=== PATIENT | female | born 1995 | race Hispanic/Latino ===

== ENCOUNTER 2017-06-29 15:17 | Emergency (ER) | payer SELFPAY ==
--- NOTE | 2017-06-29 16:32 | ER ---
Nurse's Notes [facility] Name: Christal Vasquez Age: 22 yrs Sex: Female : 1995 Arrival Date: 06/29/2017 Time: 15:18 Bed 10 Private MD: Diagnosis: Unspecified fracture of left forearm-displaced, radius Presentation: 06/29 15:26 Presenting complaint: Patient states: I fell night and I think I sprained my la1 left wrist. Transition of care: patient was not received from another setting of care. Onset of symptoms was June 29, 2017. Initial Sepsis Screen: Does the patient meet any 2 criteria? No. Patient's initial sepsis screen is negative. Does the patient have a suspected source of infection? No. Patient initial sepsis screen negative. Care prior to arrival: None. 15:26 Method Of Arrival: Ambulatory la1 15:26 Acuity: REGAN 4 la1 Triage Assessment: 15:38 General: Appears in no apparent distress. slender, well groomed, well developed, well rk2 nourished, Behavior is calm, cooperative. Pain: Complains of pain in left wrist. Neuro: Level of Consciousness is alert, obeys commands, Oriented to person, place, time, situation. Respiratory: Airway is patent Respiratory effort is even, unlabored, Respiratory pattern is regular, symmetrical. Derm: Skin is pink, warm \T\ dry. Musculoskeletal: Capillary refill < 3 seconds, fingers. Swelling present in left wrist. Injury Description: Bruise sustained to Left wrist. 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 - Social history:: Smoking status: unknown. Screenin:37 Abuse screen: Denies threats or abuse. Nutritional screening: No deficits noted. rk2 Tuberculosis screening: No symptoms or risk factors identified. Fall Risk Vital Signs: 15:27 Weight 49.44 kg; Height 4 ft. 11 in. (149.86 cm); la1 15:28 BP 119 / 69; Pulse 91; Resp 19; Temp 99.0; Pulse Ox 99% on R/A; Weight 49.44 kg; la1 15:28 Body Mass Index 22.02 (49.44 kg, 149.86 cm) la1 ED Course: 15:18 Patient arrived in ED. as 15:19 Radha Cuba FNP-C is [facility]. kb 15:19 Oscar Carbajal MD is Attending Physician. kb 15:27 Triage completed. la1 15:28 Arm band placed on left wrist. la1 15:35 Sarika Garcia, RN is Primary Nurse. rk2 15:37 Patient has correct armband on for positive identification. Bed in low position. Call rk2 light in reach. 16:19 X-ray completed. Portable x-ray completed in exam room. Patient tolerated procedure mh1 well. 16:29 Wrist Left 3 View In Process Unspecified. EDMS 16:59 Orthoglass splint: Sugar tong splint applied on left arm. capillary refill less than 3 dh3 seconds Sling applied to left arm. 17:02 No provider procedures requiring assistance completed. Patient did not have IV access rk2 during this emergency room visit. Administered Medications: No medications were administered Outcome: 16:32 Discharge ordered by . kb 17:02 Discharged to home ambulatory. rk2 17:02 Condition: good 17:02 Discharge instructions given to patient. 17:03 Patient left the ED. rk2 Signatures: Dispatcher [employer] EDMS Radha Cuba FNP-C FNP-Flori Moulton 1 Dori Koroma Lee, RN RN la1 Maria De Jesus Presley 3 Sarika Garcia, JOELLEN RN rk2
--- NOTE | 2017-06-29 16:32 | EDPHYS ---
Physician Documentation [facility] Name: Christal Vasquez Age: 22 yrs Sex: Female : 1995 Arrival Date: 06/29/2017 Time: 15:18 Bed 10 Private MD: ED Physician Oscar Carbajal HPI: 06/29 15:49 This 22 yrs old Female presents to ER via Ambulatory with complaints of Wrist kb Injury. 15:49 The patient or guardian reports injury, pain, swelling, tenderness. The complaints kb affect the left wrist diffusely. Context: The problem was sustained at home, resulted from a fall, on an outstretched hand. Onset: The symptoms/episode began/occurred 5 day(s) ago. Modifying factors: The symptoms are alleviated by nothing, the symptoms are aggravated by movement. Associated signs and symptoms: The patient has no apparent associated signs or symptoms. Compartment Syndrome negative for numbness, tingling. The patient has not experienced similar symptoms in the past. The patient has not recently seen a physician. 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 - Social history:: Smoking status: unknown. ROS: 15:47 Constitutional: Negative for fever, chills, and weight loss, Cardiovascular: Negative kb for chest pain, palpitations, and edema, Respiratory: Negative for shortness of breath, cough, wheezing, and pleuritic chest pain, Abdomen/GI: Negative for abdominal pain, nausea, vomiting, diarrhea, and constipation, Skin: Negative for injury, rash, and discoloration, Neuro: Negative for headache, weakness, numbness, tingling, and seizure. 15:47 MS/extremity: Positive for injury or acute deformity, ecchymosis, pain, swelling, tenderness, of the left wrist. Exam: 15:47 Hand exam: Exam is positive for decreased range of motion, ecchymosis, injury, pain, kb swelling, tenderness, ROM: limited active range of motion, in the left wrist, Circulation is intact in all extremities. sensation intact. 15:47 Constitutional: This is a well developed, well nourished patient who is awake, alert, and in no acute distress. Head/Face: Normocephalic, atraumatic. Chest/axilla: Normal chest wall appearance and motion. Nontender with no deformity. No lesions are appreciated. Cardiovascular: Regular rate and rhythm with a normal S1 and S2. No gallops, murmurs, or rubs. Normal PMI, no JVD. No pulse deficits. Respiratory: Lungs have equal breath sounds bilaterally, clear to auscultation and percussion. No rales, rhonchi or wheezes noted. No increased work of breathing, no retractions or nasal flaring. Abdomen/GI: Soft, non-tender, with normal bowel sounds. No distension or tympany. No guarding or rebound. No evidence of tenderness throughout. Skin: Warm, dry with normal turgor. Normal color with no rashes, no lesions, and no evidence of cellulitis. Neuro: Awake and alert, GCS 15, oriented to person, place, time, and situation. Cranial nerves II-XII grossly intact. Motor strength 5/5 in all extremities. Sensory grossly intact. Cerebellar exam normal. Normal gait. Vital Signs: 15:27 Weight 49.44 kg; Height 4 ft. 11 in. (149.86 cm); la1 15:28 BP 119 / 69; Pulse 91; Resp 19; Temp 99.0; Pulse Ox 99% on R/A; Weight 49.44 kg; la1 15:28 Body Mass Index 22.02 (49.44 kg, 149.86 cm) la1 MDM: 15:29 Patient medically screened. kb 15:47 Data reviewed: vital signs, nurses notes. Data interpreted: Pulse oximetry: on room air kb is 99 %. Interpretation: normal. 16:31 Counseling: I had a detailed discussion with the patient and/or guardian regarding: the kb historical points, exam findings, and any diagnostic results supporting the discharge/admit diagnosis, radiology results, the need for outpatient follow up, a orthopedic surgeon, to return to the emergency department if symptoms worsen or persist or if there are any questions or concerns that arise at home. 06/29 16:19 Order name: Wrist Left 3 View; Complete Time: 16:46 EDMS 06/29 16:31 Order name: Sugar Tong Forearm Splint; Complete Time: 17:00 kb 06/29 16:31 Order name: Sling; Complete Time: 17:00 kb Administered Medications: No medications were administered Disposition: 06/30 07:51 Co-signature as Attending Physician, Oscar Carbajal MD Available for consultation at ps1 all times. . Disposition: 06/29/17 16:32 Discharged to Home. Impression: Unspecified fracture of left forearm - displaced, radius. - Condition is Stable. - Discharge Instructions: Forearm Fracture, [id number]. - Work release form, Medication Reconciliation Form, Thank You Letter, Antibiotic Education, Prescription Opioid Use form. - Follow up: Emergency Department; When: As needed; Reason: Worsening of condition. Follow up: Private Physician; When: 2 - 3 days; Reason: Recheck today's complaints, Continuance of care, Re-evaluation by your physician. Signatures: Dispatcher [employer] EDRadha Guthrie, NAIMA MALAGON-Trever Redmond RN RN la1 Oscar Carbajal MD MD ps1 Sarika Garcia RN RN rk2 Corrections: (The following items were deleted from the chart) 06/29 16:47 16:38 Wrist Left 3 View+RAD.RAD.BRZ ordered. EDCO EDCO
--- NOTE | 2017-06-29 16:35 | RAD REPORT ---
EXAM DESCRIPTION: RAD - Wrist Left 3 View - 06/29/2017 4:29 pm CLINICAL HISTORY: Fall, wrist pain COMPARISON: None. FINDINGS: Fracture of the distal radius and ulnar styloid noted. No dislocation is seen.
== END 2017-06-29 17:03 | disposition home or self-care (01) ==
LOC: ER 15:17
PROC: 2W3DX1Z Immobilization of Left Lower Arm using Splint (ICD-10-PCS; principal; 2017-06-29)
DX: S52.512A Displaced fracture of left radial styloid process, initial encounter for closed fracture (principal); W19.XXXA Unspecified fall, initial encounter; Y93.9 Activity, unspecified; Y92.009 Unspecified place in unspecified non-institutional (private) residence as the place of occurrence of the external cause
CPT/HCPCS: 99283

== ENCOUNTER 2019-11-18 04:49 | Inpatient (IN) | payer OTHER ==
[~2019-11-18 04:49] MED LIST: BUTORPHANOL 1 MG/ML INJ IV PRN; CARBOPROST TROME 250 MCG/ML IM PRN; METHYLERGONOVINE 0.2MG/ML AMP IM PRN; OXYTOCIN/LR 20 UNIT/1,000 ML BAG IV SCH; PROMETHAZINE INJ 25 MG/ML AMP IM PRN; Ringers Lactate 1,000 ML IV PRN; Ringers Lactate 1,000 ML IV SCH
[2019-11-18 05:41] LABS: Absolute Lymphocytes (CBC) 2.1 K/uL (0.7-4.9); Basophils % 0.5 % (0-1.3); Hematocrit 37.7 % (36.0-45.0); Lymphocytes % 14.9 % (15.3-44.8); MPV 8.7 fL (7.6-11.3); RBC Red Blood Cell Count 4.09 M/uL (3.86-4.86)
[2019-11-18 05:43] VITALS: BMI 29.2
[2019-11-18 06:22] LABS: Urine Appearance CLOUDY; Urine Bilirubin NEGATIVE (NEG); Urine Blood NEGATIVE (NEG); Urine Color YELLOW; Urine Glucose NEGATIVE (NEG); Urine Protein NEGATIVE (NEG)
[2019-11-18 06:25] LABS: Urine Microscopic Reflex ORDER UMIC
[2019-11-18 06:34] LABS: Urine Bacteria <20 /HPF (<20); Urine Culture Reflex Order REFLEXED; Urine RBC NONE SEEN /HPF (NONE SEEN)
[2019-11-18] MEDS ORDERED: BUPIVACAINE 0.25% PF 10 ML VIAL IV PRN (08:16)
[2019-11-18] MEDS ORDERED: FENTANYL CITR 100 MCG/2 ML IV ONE (08:16)
[2019-11-18] MEDS ORDERED: FENTANYL/BUPIVACAINE/NS/PF 200 MCG/100 ML BAG EP PRN (08:16)
--- NOTE | 2019-11-18 08:28 | PREOPHP ---
Date of Admission: 11/18/2019 Christal Vasquez is a 24-year-old primigravida, 38 weeks 4 days. The patient has been known to have a ba by with bilateral hydronephrosis and now developed oligohydramnios. She was scheduled for induction next week, but we have moved the induction up secondary to the oligohydramnios. She is Rh positive, immune to Rubella. Negative beta strep screen. COVID status pending. Elia regularly at this 3 cm. Cervix still somewhat posterior, 50% effaced, vertex well applied at -1 station. Ruptured me mbranes, clear fluid. Labor talk given. Anticipate more rapid progress once she gets about to 5 cm. The patient probably be requesting epidural. Montse Rader is patient's security auditor. She is jose alberto mckeon made aware of the oligohydramnios situation of course will be responsible for evaluation of the bab y . MARLEEN/PATRICIA Voice ID: [id number]
[2019-11-18] MEDS ORDERED: BUPIVACAINE 0.25% PF 30 ML VIAL ONE (08:50)
[2019-11-18] MEDS ORDERED: Ringers Lactate 3,000 ML IV ONE (10:04)
[2019-11-18] MEDS ORDERED: LIDOCAINE 1% MPF 30 ML VIAL ONE (10:23)
[2019-11-18] MEDS ORDERED: Oxycodone HCl/Acetaminophen 1 TAB TAB PO PRN (12:19)
[2019-11-18] MEDS ORDERED: ACETAMINOPHEN 500 MG TAB PO PRN (12:19)
[2019-11-18] MEDS ORDERED: BISACODYL 10 MG RECTAL SUPP PR PRN (12:19)
[2019-11-18] MEDS ORDERED: DOCUSATE NA/SENNA CONC 1 TAB PO PRN (12:19)
[2019-11-18] MEDS ORDERED: DIPHENHYDRAMINE 25 MG TAB/CAP PO PRN (12:19)
[2019-11-18] MEDS ORDERED: OXYTOCIN/LR 20 UNIT/1,000 ML BAG IV SCH (13:00)
[2019-11-18] MEDS: IBUPROFEN 600 MG TAB PO PRN (16:45)
[2019-11-18] MEDS: Oxycodone HCl/Acetaminophen 1 TAB TAB PO PRN (20:12)
--- NOTE | 2019-11-18 21:55 | OP ---
Surgeon: Michael Avendano MD Christal Vasquez is a 24-year-old primigravida, 38 weeks 4 days. Baby noted to have bilateral hydronephr osis with sudden development of oligohydramnios. She was scheduled for induction next Thursday at 39 w eeks, but at 38 weeks 4 days, we decided to proceed with induction. Favorable cervix 2.5 to 3 cm. O n admission, rupture membranes at 3 cm, clear fluid. FHTs normal, reactive. The patient got epidura l anesthesia at her request. Second stage of about 30 to 35 minutes. Spontaneous vaginal delivery o f a 6 pounds 13 ounces male . Loose nuchal cord x1. Apgars 9 and 9. First degree laceration to the right of the clitoris, sutured with running locked stitches of 2-0 chromic. Second degree mid line laceration sutured with 2-0 chromic. Schultze delivery of the placenta, which was noted to be h eavily calcified, but otherwise normal. Estimated blood loss 350 cc to 375 cc. The patient is Rh po sitive, immune to Rubella, negative beta strep screen. Tolerated all procedures well. Baby has quit e a bit of mucus, but has not good color, good heart rate, looks good. Chief Engineering Division will be asked to come, evaluate the baby if the nurses cannot suck out the mucus in the next few minutes. Final Diagnoses: Term intrauterine at 38 weeks 4 days, bilateral hydronephrosis, oligohydr amnios, labor induction, vaginal delivery, epidural anesthesia, nuchal cord. NBC/MODL Voice ID: [id number] Report ID: [id number]
[2019-11-19 00:02] LABS: RPR (Rapid Plasma Reagin) NON-REACT (NON-REACT)
[2019-11-19] MEDS: IBUPROFEN 600 MG TAB PO PRN ×2 (00:51→11:10)
[2019-11-19] MEDS: Oxycodone HCl/Acetaminophen 1 TAB TAB PO PRN (00:51)
--- NOTE | 2019-11-19 08:44 | DS ---
Christal Vasquez is a 24-year-old primigravida, 38 weeks 4 days. Baby noted to have bilateral hydronephr osis and patient developed oligohydramnios, therefore was decided to proceed with induction. The pat ient was favorable on admission 2.5 to 3 cm. Rupture membranes, clear fluid. The patient went to an active labor, received epidural anesthesia, second stage about 30-45 minutes. Spontaneous vaginal d elivery of a 6 pounds 13 ounces male , Apgars 9 and 9. First-degree laceration to the right of clitoris, sutured with 2-0 chromic and second degree midline small laceration again with 2-0 chromic . Villa delivery of the placenta, which was heavily calcified, but otherwise normal, 350 to 375 cc blood loss. Baby noted to have a very loose nuchal cord. Rh positive, immune to rubella. Negative beta strep screen. ; afebrile, ambulating and voiding. Lochia is normal. No post epidura l problems. The patient request narcotic analgesics on dismissal. She knows this goes through the b reast milk and may elect to take Motrin instead. No post epidural problems. Tdap has been offered d uring her and again offered today. Baby is to be evaluated by Dr. Rader, but thus far i s doing quite well. Final Diagnoses: Intrauterine gestation, 38 weeks and 4 days, bilateral hydronephrosis, oligoh ydramnios, vaginal delivery, epidural anesthesia. Nuchal cord loosely. SCOOTERC/MODL Voice ID: [id number] Report ID: [id number]
[2019-11-19 11:14] VITALS: BP 137/78; TEMP 98.3
== END 2019-11-19 15:30 | disposition home or self-care (01) | DRG 807 ==
LOC: 2ND-WC 04:49
PROVIDERS: ADMIT Specialist; ATTEND Specialist
PROC: 10E0XZZ Delivery of Products of Conception, External Approach (ICD-10-PCS; principal; 2019-11-18)
PROC: 0KQM0ZZ Repair Perineum Muscle, Open Approach (ICD-10-PCS; 2019-11-18)
PROC: 3E033VJ Introduction of Other Hormone into Peripheral Vein, Percutaneous Approach (ICD-10-PCS; 2019-11-18)
DX: O41.03X0 Oligohydramnios, third trimester, not applicable or unspecified (principal); Z37.0 Single live birth; O70.1 Second degree perineal laceration during delivery; Z3A.38 38 weeks gestation of pregnancy; Z01.812 Encounter for preprocedural laboratory examination; Z20.828 Contact with and (suspected) exposure to other viral communicable diseases
CPT/HCPCS: 36415; 76805; 81003; 81015; 85025; 86592; 86850; 86900; 86901; 87086; 87088; J0595; J2210; J2550; J2590; J3010; J7120; U0002; U0003

== ENCOUNTER 2024-04-16 03:35 | Emergency (ER) | payer OTHER ==
--- OUTSIDE RECORDS SUMMARY | 2024-04-16 03:37 | XMS REPORT | Continuity of Care Document ---
Author Name Unknown Address [address] [place] [address] [facility] Address [address] [place] [address] Care Team Providers Care Medicaid Billing Clerk Name Role Phone PCP, PATIENT DOES NOT HAVE A Primary Care Physic jaime Unavailable NICKO HUANG Attending Clinician Unavailable AMPARO JOHNSON Attending Clinician Unavailable Payers Payer Name Policy Type Policy Number Effective Date Expirati on Date Source [place] [employer] [id number] 2023 00:00:00 Allergies, Adverse Reactions, Alerts Allergy Name Allergy Type Status Severity Reaction(s) Onset Date Inactive Date Treating Clinician Comments Source NO KNOWN ALLERGIE S Drug Class Active [facility] Encounters Start Date/Time End Date/Time Encounter Type Admission Type Attending Clinicians Care Facility Care Department Encounter ID Source 2021-10-15 13:52:[address] [facility] [id number] [facility] 2024-04-18 13:00:00 2024-04-18 13:00:00 Outpatient NICKO BLA[facility] [id number] [facility] 2024-04-12 09:15:00 2024-04-12 09:15:00 Outpatient AMPARO [facility]IRANDA [facility] [id number] [facility] 2024-04-12 08:45:00 2024-04-12 08:45:00 Outpatient AMPARO MIRANDA [facility] [id number] [facility] 2024-04-08 14:00:00 2024-04-08 14:00:00 Outpatient AMPARO MIRANDA [facility] [id number] [facility]
[2024-04-16] MEDS ORDERED: TETRACAINE HCL 0.5% 4ML OPTH ONE (03:49)
[2024-04-16] MEDS ORDERED: FLUORESCEIN SODIUM 1 MG/WRAP ONE (03:50)
[2024-04-16] MEDS ORDERED: TOBRAMYCIN SULF 0.3% OPTH OINT ONE (04:38)
--- NOTE | 2024-04-16 05:10 | ER ---
Nurse's Notes [facility] Name: Christal Vasquez Age: 28 yrs Sex: Female : 1995 Arrival Date: 04/16/2024 Time: 03:35 Bed 5 Private MD: Diagnosis: Injury of conjunctiva and corneal abrasion without foreign body, right eye Presentation: 04/16 03:55 Chief complaint: Patient states: sons fingernail to right eye 3hr [employer]. complaints of lg3 took Excedrin with no relief. Coronavirus screen: Client denies travel out of the [place] in the last 14 days. At this time, the client does not indicate any symptoms associated with coronavirus-19. Ebola Screen: No symptoms or risks identified at this time. Initial Sepsis Screen: Does the patient meet any 2 criteria? No. Patient's initial sepsis screen is negative. Does the patient have a suspected source of infection? No. Patient's initial sepsis screen is negative. Risk Assessment: Do you want to hurt yourself or someone else? Patient reports no desire to harm self or others. Onset of symptoms was April 16, 2024. 03:55 Method Of Arrival: Ambulatory lg3 03:55 Acuity: REGAN 4 lg3 05:39 Mechanism of Injury: playful accident by child. The patient denies any loss of vision. bm8 Triage Assessment: 04:00 General: Appears in no apparent distress. uncomfortable, Behavior is calm, cooperative. lg3 Pain: Complains of pain in right eye. EENT: Eyes are tearing on right eye Sclera/Cornea are reddened in right eye Reports blurred vision in right eye pain in right eye. Neuro: No deficits noted. Huynh Agitation-Sedation Scale (RASS): 0 - Alert and Calm Level of Consciousness is awake, alert, obeys commands, Oriented to person, place, time, situation. Cardiovascular: No deficits noted. Denies chest pain, shortness of breath. Respiratory: No deficits noted. Airway is patent Respiratory effort is even, unlabored, Respiratory pattern is regular, symmetrical. GI: No deficits noted. No signs and/or symptoms were reported involving the gastrointestinal system. : No signs and/or symptoms were reported regarding the genitourinary system. Derm: No deficits noted. No signs and/or symptoms reported regarding the dermatologic system. Skin is intact, is healthy with good turgor, Skin is dry, Skin is normal, Skin temperature is warm. Musculoskeletal: No deficits noted. No signs and/or symptoms reported regarding the musculoskeletal system. Circulation, motion, and sensation intact. Range of motion: intact in all extremities. 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 - Infectious Disease History:: Denies. Denies. - Social history:: Smoking status: Patient denies any tobacco usage or history of. Patient/guardian denies using alcohol, street drugs, Smoking status: Patient denies any tobacco usage or history of. Screenin:01 [facility] ED Fall Risk Assessment (Adult) History of falling in the last 3 months, bm8 including since admission No falls in past 3 months (0 pts) Confusion or Disorientation No (0 pts) Intoxicated or Sedated No (0 pts) Impaired Gait No (0 pts) Mobility Assist Device Used No (0 pt) Altered Elimination No (0 pt) Score/Fall Risk Level 0 - 2 = Low Risk Oriented to surroundings, Maintained a safe environment, Educated pt \T\ family on fall prevention, incl call for assistance when getting out of bed, Assessed \T\ reinforced patient's understanding of fall precautions, Hourly rounding (assess needs \T\ fall precautionary measures) done, Used ambulatory aids as needed (educated on \T\ assisted with), Used gait belt as appropriate. Abuse screen: Denies threats or abuse. Nutritional screening: No deficits noted. Tuberculosis screening: No symptoms or risk factors identified. Assessment: 03:59 Reassessment: Patient appears in no apparent distress at this time. Patient and/or bm8 family updated on plan of care and expected duration. Pain level reassessed. Patient is alert, oriented x 3, equal unlabored respirations, skin warm/dry/pink. General: Appears in no apparent distress. comfortable, Behavior is calm, cooperative, appropriate for age. Pain: Complains of pain in right eye Pain currently is 0 out of 10 on a pain scale. Neuro: No deficits noted. Level of Consciousness is awake, alert, obeys commands, Oriented to person, place, time, situation, Appropriate for age. Cardiovascular: No deficits noted. Capillary refill < 3 seconds in bilateral fingers Patient's skin is warm and dry. Respiratory: Airway is patent Respiratory effort is even, unlabored, Respiratory pattern is regular, symmetrical. GI: No signs and/or symptoms were reported involving the gastrointestinal system. : No signs and/or symptoms were reported regarding the genitourinary system. EENT: Eyes are tearing on inner aspect of conjuctiva of right eye and right inner canthus Sclera/Cornea are reddened in inner aspect of conjuctiva of right eye and right inner canthus Reports blurred vision pain in right eye. Derm: No signs and/or symptoms reported regarding the dermatologic system. Musculoskeletal: No signs and/or symptoms reported regarding the musculoskeletal system. 05:37 Reassessment: Patient appears in no apparent distress at this time. Patient and/or bm8 family updated on plan of care and expected duration. Pain level reassessed. Patient is alert, oriented x 3, equal unlabored respirations, skin warm/dry/pink. Patient states feeling better. Patient states symptoms have improved. Vital Signs: 03:55 BP 112 / 77; Pulse 77; Resp 15 S; Temp 98.1(O); Pulse Ox 100% on R/A; Weight 47.63 kg lg3 (R); Height 4 ft. 11 in. (R); 03:55 Body Mass Index 21.21 (47.63 kg, 149.86 cm) lg3 Visual Acuity: 05:37 ; visual acuity not done bm8 [place] Coma Score: 04:01 Eye Response: spontaneous(4). Motor Response: obeys commands(6). Verbal Response: bm8 oriented(5). Total: 15. ED Course: 03:39 Patient arrived in ED. gm2 03:58 Pardeep Sky, RN is Primary Nurse. bm8 04:00 Triage completed. lg3 04:00 Arm band placed on right wrist. lg3 04:01 Patient has correct armband on for positive identification. Bed in low position. Call bm8 light in reach. Client placed on continuous cardiac and pulse oximetry monitoring. NIBP monitoring applied. Pulse ox on. NIBP on. Door closed. Noise minimized. Warm blanket given. Pillow given. Verbal reassurance given. Head of bed elevated. 04:01 Assist provider with eye exam using fluorescein stain, Performed by Weston Casper MD bm8 Patient tolerated well. Patient did not have IV access during this emergency room visit. Patient maintains SpO2 saturation greater than 95% on room air. 04:32 Weston Casper MD is Attending Physician. vc1 05:37 Provided Education on: post er care. bm8 Administered Medications: 04:04 Drug: Tetracaine Ophthalmic Drops 0.5 % 1 drops Ophthalmic once Route: Ophthalmic; bm8 Site: right eye; 05:38 Follow up: Response: No adverse reaction bm8 04:41 Drug: Tobrex Ophthalmic Ointment 0.3 % 1 application Ophthalmic in right eye once lg3 Route: Ophthalmic; Site: right eye; 05:38 Follow up: Response: No adverse reaction bm8 Medication: 04:01 VIS not applicable for this client. bm8 Outcome: 05:10 Discharge ordered by . herbie 05:36 Patient left the ED. bm8 05:37 Discharged to home ambulatory, bm8 05:37 Condition: stable 05:37 Discharge instructions given to patient, Instructed on discharge instructions, follow up and referral plans. Demonstrated understanding of instructions, follow-up care, medications, Signatures: Parul Rayo RN RN lg3 Stephany Rodriguez RN RN 1 Tessie George [facility] Weston Casper MD MD bo1 Pardeep Sky RN RN bm8
--- NOTE | 2024-04-16 05:10 | EDPHYS ---
Physician Documentation [facility] Name: Christal Vasquez Age: 28 yrs Sex: Female : 1995 Arrival Date: 04/16/2024 Time: 03:35 Bed 5 Private MD: ED Physician Weston Casper HPI: 04/16 05:00 This 28 yrs old Female presents to ER via Ambulatory with complaints of Eye bo1 Injury, Eye Pain. 05:00 The patient sustained a scratch, By the pinky nail of the right hand as pt was holding bo1 her child. Onset: The symptoms/episode began/occurred suddenly, today, 5 hour(s) ago. Severity of symptoms: At their worst the symptoms were moderate. No glasses or contacts worn. 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 - Infectious Disease History:: Denies. Denies. - Social history:: Smoking status: Patient denies any tobacco usage or history of. Patient/guardian denies using alcohol, street drugs, Smoking status: Patient denies any tobacco usage or history of. ROS: 05:01 Eyes: Positive for injury, pain, tears bo1 05:01 Eyes: Negative for itching, vision loss, 05:01 All other systems are negative, Exam: 05:03 Eyes: Conjunctiva: injected, in the right eye, Mild. Visual obrien: are intact, Wood's bo1 lamp exam: Dye uptake at the lower half of the clear pupil of the OD. No laceration. Pt shown the uptake via a cellphone in selfie mode. 05:11 Constitutional: This is a well developed, well nourished patient who is awake, alert, bo1 and in mild acute distress. Vital Signs: 03:55 BP 112 / 77; Pulse 77; Resp 15 S; Temp 98.1(O); Pulse Ox 100% on R/A; Weight 47.63 kg lg3 (R); Height 4 ft. 11 in. (R); 03:55 Body Mass Index 21.21 (47.63 kg, 149.86 cm) lg3 [place] Coma Score: 04:01 Eye Response: spontaneous(4). Motor Response: obeys commands(6). Verbal Response: bm8 oriented(5). Total: 15. Visual Acuity: 05:37 ; visual acuity not done bm8 MDM: 04:42 Medical Screening Exam initiated bo1 05:05 Differential diagnosis: Corneal abrasion of right eye. Data reviewed: vital signs. ED bo1 course: Pt has been given the Tobrex ointment. 04/16 03:59 Order name: Fluoresene Opth strip; Complete Time: 04:04 vc1 04/16 03:59 Order name: Eye Tray; Complete Time: 04:04 vc1 Administered Medications: 04:04 Drug: Tetracaine Ophthalmic Drops 0.5 % 1 drops Ophthalmic once Route: Ophthalmic; bm8 Site: right eye; 05:38 Follow up: Response: No adverse reaction bm8 04:41 Drug: Tobrex Ophthalmic Ointment 0.3 % 1 application Ophthalmic in right eye once lg3 Route: Ophthalmic; Site: right eye; 05:38 Follow up: Response: No adverse reaction bm8 Disposition Summary: 04/16/24 05:10 Discharge Ordered Notes: Location: Home bo1 Problem: new bo1 Symptoms: have improved bo1 Condition: Stable bo1 Diagnosis - Injury of conjunctiva and corneal abrasion without foreign body, right eye bo1 Followup: bo1 - With: Private Physician - When: Upon discharge from the Emergency Department - Reason: Recheck today's complaints, Continuance of care Discharge Instructions: - Discharge Summary Sheet bo1 - Corneal Abrasion, [id number] bo1 Forms: - Medication Reconciliation Form bo1 - Antibiotic Education bo1 - Prescription Opioid Use bo1 - Patient Portal Instructions bo1 - Leadership Thank You Letter bo1 Prescriptions: - tobramycin 0.3 % Ophthalmic ointment - instill 1 application OPHTHALMIC route every 4 hours for 7 days; 1 unit; bo1 Refills: 0, Product Selection Permitted Signatures: Parul Rayo RN RN lg3 Stephany Rodriguez RN RN vc1 Weston Casper MD MD bo1 Pardeep Sky, RN RN bm8
[2024-04-16 05:42] VITALS: BP 112/77; TEMP 98.1; O2SAT 100
== END 2024-04-16 05:36 | disposition home or self-care (01) ==
LOC: ER 03:35
DX: S05.01XA Injury of conjunctiva and corneal abrasion without foreign body, right eye, initial encounter (principal)
CPT/HCPCS: 99284